=== PATIENT | female | born 1940 | race Caucasian/White ===

== ENCOUNTER 2017-07-24 06:03 | Day surgery (SDC) | payer MEDICARE, OTHER ==
[~2017-07-24] VITALS: Ht 157.5 cm; Wt 77.0 kg
[~2017-07-24 06:03] MED LIST: ASPI81TA3 PO; DICL50TA11 PO; GLUC1CAP40 PO; METO-429 PO; OMEP20CA16 PO; OXYB5TAB7 PO; ZOC10 PO
[2017-07-24 07:03] VITALS: Ht 157.5 cm; Wt 77.0 kg
[2017-07-24] MEDS ORDERED: DOCU-144 PO (07:10)
[2017-07-24] MEDS ORDERED: IBUP-1542 PO (07:10)
[2017-07-24] MEDS ORDERED: LEVO125T75 PO (07:10)
[2017-07-24] MEDS ORDERED: ALBU8.5H3 INH (07:10)
[2017-07-24 07:55] VITALS: BP 222/85; PULSE 55; RESP 18
[2017-07-24] MEDS ORDERED: PROPOFOL 40 ML ONE (07:55)
[2017-07-24] MEDS ORDERED: LIDOCAINE 100 MG SYRINGE ONE (07:55)
--- NOTE | 2017-07-24 08:25 | OPPN ---
Date/Time of Note Date/Time of Note DATE: 07/24/17 TIME: 08:25 Operative Report Preoperative Diagnosis Change in bowel habit Screening colonoscopy Postoperative Diagnosis Multiple colon polyps removed Diverticulosis of the colon Internal hemorrhoids Operation/Procedure Performed Colonoscopy and biopsy Surgeon see signature line psychiatric nursing assistant None Anesthesia: MAC Estimated blood loss: none Transfusion Required none Specimen Colon polyps Grafts/Implants none Complications none MINI BROWN MD Jul 24, 2017 08:25
[2017-07-24 08:52] VITALS: BP 174/99; PULSE 50; RESP 19
--- NOTE | 2017-07-25 04:47 | GILP ---
DATE OF PROCEDURE: 07/24/2017 NAME OF PROCEDURES: Colonoscopy and biopsy. SURGEON: Mini Brewer MD PREOPERATIVE DIAGNOSIS: 1. Change in bowel habit. 2. Screening colonoscopy. POSTOPERATIVE DIAGNOSES 1. Colonoscopy all the way to the cecum. 2. Multiple small colon polyps were removed. 3. Diverticulosis of the colon. 4. Internal hemorrhoids. INDICATION FOR THE PROCEDURE: Ms. Natalee Baron is a 76-year-old female patient who noticed a gill ge in the bowel habit. She never had screening colonoscopy. The procedure and possible complications are well explained to the patient, she understood and conse nted to the procedure. DESCRIPTION OF PROCEDURE: Under the influence of anesthesia, the colonoscope was carefully introduc ed in the rectum and under direct vision, it was advanced all the way to the cecum. FINDINGS: The patient had multiple small colon polyps and they were removed using the biopsy forcep s. She had diverticulosis of the colon. She also had internal hemorrhoids. She tolerated the procedure very well and there was no complication from the procedure. At the end of the procedures, she was awake with stable vital signs and she was discharged home to the care of her family. IMPRESSION: Please see postoperative diagnosis. PLAN: 1. Await histopathology report. 2. Next screening colonoscopy in 5 years. Dictated By: MINI COTO/JAGUAR Conf#: [id number] DID#: [id number]
== END 2017-07-24 08:50 | disposition home or self-care (01) ==
LOC: GIL 06:03
PROVIDERS: ATTEND Internal Medicine Gastroenterology
DX: R19.4 Change in bowel habit (principal); K62.1 Rectal polyp; K63.5 Polyp of colon; K57.90 Diverticulosis of intestine, part unspecified, without perforation or abscess without bleeding; K64.8 Other hemorrhoids; I10 Essential (primary) hypertension; J45.909 Unspecified asthma, uncomplicated; E78.5 Hyperlipidemia, unspecified
CPT/HCPCS: 45380; 88305; J2001